=== PATIENT | female | born 1985 | race Two or more races ===

== ENCOUNTER 2021-02-11 11:45 | Inpatient (IN) | payer MEDICAID, OTHER ==
[~2021-02-11] VITALS: Ht 157.5 cm; Wt 99.8 kg
[2021-02-11] MEDS ORDERED: BUTORPHANOL TARTRATE 2 MG/ML VIAL IV PRN (12:30)
[2021-02-11] MEDS ORDERED: LIDOCAINE HCL 1% 20ML VIAL (Pyxis) INJ INFIL SCH (12:30)
[2021-02-11] MEDS ORDERED: NALOXONE HCL 0.4 MG/ML 1ML VIAL IM PRN (12:30)
[2021-02-11] MEDS ORDERED: METHYLERGONOVINE MALEATE 0.2 MG/ML IM PRN (12:30)
[2021-02-11 12:53] LABS: BASOPHILS % 0.3 % (0.0-2.0); EOSINOPHILS % 0.2 % (0.0-5.0); HEMATOCRIT. 33.3 % (36.0-48.0); HEMOGLOBIN. 11.9 g/dL (12.0-16.0); LYMPHOCYTES % 13.8 % (20.0-50.0); MEAN CORPUSCULAR HEMOGLOBIN 31.5 pg (28.0-32.0); MEAN CORPUSCULAR VOLUME 88.5 fL (81.0-99.0); MEAN PLATELET VOLUME 10.3 fl (7.4-10.4); MONOCYTES % 5.1 % (2.0-8.0); NEUTROPHILS % 80.6 % (40.0-76.0); PLATELET 200 x1000/uL (130-400); RED BLOOD CELL COUNT 3.76 mill/uL (4.2-5.4); RED CELL DISTRIBUTION WIDTH 13.8 % (11.6-14.6)
[2021-02-11 13:17] LABS: INR 0.9; PARTIAL THROMBOPLASTIN TIME 26.5 sec (23.4-31.0); PROTHROMBIN TIME 10.1 sec (9.6-11.0)
[2021-02-11 13:52] LABS: HEPATITIS B SURFACE ANTIGEN NEGATIVE
[2021-02-11] MEDS ORDERED: ROPIVACAINE HCL/PF EPIDURAL 200 ML EPI ONE (16:20)
[2021-02-11 17:08] LABS: CLARITY URINE CLOUDY (CLEAR); COLOR URINE YELLOW (YELLOW); KETONES URINE 1+ (NEGATIVE); LEUKOCYTE ESTERASE URINE 3+ (NEGATIVE); NITRITE URINE NEGATIVE (NEGATIVE); OCCULT BLOOD URINE 2+ (NEGATIVE); PH URINE 6.5 (4.5-8.0); PROTEIN URINE TRACE (NEGATIVE); SPECIFIC GRAVITY URINE 1.014 (1.005-1.030); UROBILINOGEN URINE 0.2 E.U./dL (0.2-1.0)
[2021-02-11 17:26] LABS: *AMPHETAMINES SCREEN URINE NEGATIVE (NEGATIVE); *BARBITURATES SCREEN URINE NEGATIVE (NEGATIVE); *BENZODIAZEPINES SCREEN URINE NEGATIVE (NEGATIVE)
[2021-02-11 17:27] LABS: *COCAINE SCREEN URINE NEGATIVE (NEGATIVE); CANNABINOID URINE SCREEN NEGATIVE (NEGATIVE); METHADONE URINE SCREEN NEGATIVE (NEGATIVE); OPIATES URINE SCREEN NEGATIVE (NEGATIVE); PHENCYCLIDINE URINE SCREEN NEGATIVE (NEGATIVE)
[2021-02-11] MEDS: DEXT 5%/LR + PITOCIN 20UNITS/L 1,000 ML IV SCH (17:31)
[2021-02-11] MEDS: LACTATED RINGERS 1,000 ML IV SCH ×2 (17:35→19:40)
[2021-02-11] MEDS ORDERED: MINERAL OIL 30ML BOTTLE PO SCH (19:15)
[2021-02-11] MEDS ORDERED: ROPIVACAINE HCL/PF EPIDURAL 200 ML EPI SCH (21:00)
[2021-02-12] MEDS: LACTATED RINGERS 1,000 ML IV SCH (03:20)
[2021-02-12] MEDS ORDERED: BISACODYL 10MG SUPP PR PRN (07:45)
[2021-02-12] MEDS ORDERED: DEXT 5%/LR + PITOCIN 20UNITS/L 1,000 ML IV SCH (07:45)
[2021-02-12] MEDS ORDERED: DIPHENHYDRAMINE 25MG CAPSULE PO PRN (07:45)
[2021-02-12] MEDS ORDERED: LANOLIN OINT 7GM TUBE TOP PRN (07:45)
[2021-02-12] MEDS ORDERED: RHO(D) IMMUNE GLOBULIN 300 MCG/SYR IM PRN (07:45)
[2021-02-12] MEDS ORDERED: BENZOCAINE/LANOLIN/ALOE VERA SPRAY TOP PRN (07:45)
[2021-02-12] MEDS ORDERED: HEMORRHOIDAL SUPP PR PRN (07:45)
[2021-02-12] MEDS ORDERED: ACETAMINOPHEN WITH CODEINE 300/30MG TABLET PO PRN ×2 (07:45)
[2021-02-12] MEDS: DEXT 5%/LR + PITOCIN 20UNITS/L 1,000 ML IV SCH (08:23)
[2021-02-12 09:30] VITALS: BP 102/47
[2021-02-12] MEDS: PRENATAL VIT/FE FUMARATE/FA TABLET PO SCH (09:30)
[2021-02-12 10:00] VITALS: BP 95/50
[2021-02-12 10:30] VITALS: BP 98/50
[2021-02-12] MEDS: MAGNESIUM/ALUMINUM HYDROXIDE/SIMETHICONE 30ML UDC PO SCH ×2 (12:30→20:25)
[2021-02-12] MEDS: SIMETHICONE 80MG TABLET CHEW PO SCH ×2 (12:53→20:26)
[2021-02-12] MEDS: IBUPROFEN 400MG TABLET PO PRN ×2 (13:33→20:26)
[2021-02-12 15:39] VITALS: BP 103/60
[2021-02-12 18:45] VITALS: BP 93/51
[2021-02-12] MEDS: DOCUSATE SODIUM 100MG CAPSULE PO SCH (20:26)
[2021-02-13 03:45] VITALS: BP 112/64
[2021-02-13 07:30] VITALS: BP 110/68
[2021-02-13 07:48] LABS: BASOPHILS % 0.4 % (0.0-2.0); HEMATOCRIT. 30.6 % (36.0-48.0); HEMOGLOBIN. 10.6 g/dL (12.0-16.0); LYMPHOCYTES % 19.5 % (20.0-50.0); MEAN CORPUSCULAR HEMOGLOBIN 31.1 pg (28.0-32.0); MEAN CORPUSCULAR VOLUME 90.1 fL (81.0-99.0); MEAN PLATELET VOLUME 10.7 fl (7.4-10.4); MONOCYTES % 4.9 % (2.0-8.0); NEUTROPHILS % 73.2 % (40.0-76.0); PLATELET 164 x1000/uL (130-400); RED CELL DISTRIBUTION WIDTH 14.3 % (11.6-14.6)
[2021-02-13] MEDS: FERROUS SULFATE 325MG TABLET PO SCH ×2 (09:49→14:18)
[2021-02-13] MEDS: PRENATAL VIT/FE FUMARATE/FA TABLET PO SCH (09:49)
[2021-02-13] MEDS: SIMETHICONE 80MG TABLET CHEW PO SCH ×3 (09:50→20:22)
[2021-02-13] MEDS: IBUPROFEN 400MG TABLET PO PRN ×2 (14:18→20:23)
[2021-02-13 16:29] VITALS: BP 104/46
[2021-02-13 19:15] VITALS: BP 114/62
[2021-02-13] MEDS: MAGNESIUM/ALUMINUM HYDROXIDE/SIMETHICONE 30ML UDC PO SCH (20:22)
[2021-02-13] MEDS: DOCUSATE SODIUM 100MG CAPSULE PO SCH (20:22)
[2021-02-14 03:30] VITALS: BP 128/60
[2021-02-14] MEDS ORDERED: FERR325T23 PO (03:35)
[2021-02-14] MEDS ORDERED: MULT-1116 MT (03:35)
[2021-02-14] MEDS ORDERED: IBUP-2028 PO (03:35)
[2021-02-14] MEDS: MAGNESIUM/ALUMINUM HYDROXIDE/SIMETHICONE 30ML UDC PO SCH (07:30)
[2021-02-14] MEDS: FERROUS SULFATE 325MG TABLET PO SCH (07:30)
[2021-02-14 07:42] VITALS: BP 108/65
[2021-02-14] MEDS: SIMETHICONE 80MG TABLET CHEW PO SCH (08:00)
[2021-02-14] MEDS: PRENATAL VIT/FE FUMARATE/FA TABLET PO SCH (08:13)
== END 2021-02-14 11:20 | disposition home or self-care (01) | DRG 560 ==
LOC: OBSVTOIN 11:45 → 8 EST LDRP 11:45 → 8EST 02-12 09:40
PROVIDERS: ADMIT Obstetrics & Gynecology; ATTEND Obstetrics & Gynecology
PROC: 10E0XZZ Delivery of Products of Conception, External Approach (ICD-10-PCS; principal; 2021-02-12)
PROC: 3E0R3BZ Introduction of Anesthetic Agent into Spinal Canal, Percutaneous Approach (ICD-10-PCS; 2021-02-12)
PROC: 00HU33Z Insertion of Infusion Device into Spinal Canal, Percutaneous Approach (ICD-10-PCS; 2021-02-12)
DX: O99.02 Anemia complicating childbirth (principal); D62 Acute posthemorrhagic anemia; Z37.0 Single live birth; Z3A.36 36 weeks gestation of pregnancy
CPT/HCPCS: 36415; 76805; 80305; 81003; 85025; 86592; 86703; 86762; 86850; 86900; 87340; 99281; G0378; J2590; J2795; J7120; A4315

== ENCOUNTER 2023-12-12 22:47 | Emergency (ER) | payer MEDICAID, OTHER ==
[~2023-12-12] VITALS: Ht 157.5 cm; Wt 90.7 kg
[~2023-12-12 22:47] MED LIST: FERR325T23 PO; IBUP-2028 PO; MULT-1116 MT
[2023-12-13] MEDS: ONDANSETRON HCL 4MG/2ML INJ IV STA (00:53)
[2023-12-13] MEDS: MORPHINE SULFATE 4 MG/ML INJ (FOR IV/IM USE) IV STA (00:54)
[2023-12-13] MEDS: SODIUM CHLORIDE 0.9% 1,000 ML IV ONE (00:54)
[2023-12-13 00:59] VITALS: O2SAT 95
[2023-12-13 01:15] VITALS: TEMP 98.4
[2023-12-13] MEDS: ETOMIDATE 2MG/ML 10ML VIAL IV ONE (01:22)
[2023-12-13] MEDS: MORPHINE SULFATE 2 MG/ML CPJ (NOT FOR IM USE) IV ONE (02:34)
[2023-12-13] MEDS ORDERED: HYDR-4001 MT (02:34)
[2023-12-13 03:15] VITALS: BP 113/61; PULSE 106; RESP 19
== END 2023-12-13 03:40 | disposition home or self-care (01) ==
LOC: ER 22:47
DX: S82.851A Displaced trimalleolar fracture of right lower leg, initial encounter for closed fracture (principal); W18.39XA Other fall on same level, initial encounter; Y93.89 Activity, other specified; Y92.89 Other specified places as the place of occurrence of the external cause; Y99.8 Other external cause status
CPT/HCPCS: 73610 ×2; 27818; 99152; 99285; 96360; Z7610 ×5; J3490; J2405; J2270 ×2; J7030; 94003